=== PATIENT | male | born 1975 | race Two or more races ===

== ENCOUNTER 2016-12-03 00:19 | Emergency (ER) | payer SELFPAY ==
[~2016-12-03] VITALS: Ht 175.3 cm; Wt 86.0 kg
[2016-12-03] MEDS ORDERED: LIDOCAINE HCL/EPINEPHRINE 0.5%-EPI 1:200,000 50 ML VIAL INFIL ONE (02:00)
[2016-12-03] MEDS ORDERED: LIDOCAINE HCL 1%/EPI 1:200,000 30 ML VIAL IJ SCH (02:45)
[2016-12-03 04:29] VITALS: BP 139/93
== END 2016-12-03 04:30 | disposition home or self-care (01) ==
LOC: ER 00:19
PROC: 08QQXZZ Repair Right Lower Eyelid, External Approach (ICD-10-PCS; principal; 2016-12-03)
DX: S01.111A Laceration without foreign body of right eyelid and periocular area, initial encounter (principal); I10 Essential (primary) hypertension; W10.8XXA Fall (on) (from) other stairs and steps, initial encounter; Y93.89 Activity, other specified; Y92.89 Other specified places as the place of occurrence of the external cause
CPT/HCPCS: 12011; 70450; 99284; A4217; J3490; Z7610

== ENCOUNTER 2016-12-05 12:03 | Emergency (ER) | payer SELFPAY ==
[~2016-12-05] VITALS: Ht 175.3 cm; Wt 86.0 kg
[2016-12-05 12:07] VITALS: BP_DIAS 97
[2016-12-05 12:52] VITALS: BP_SYST 154
[2016-12-05] MEDS ORDERED: SULFACETAMIDE SODIUM 10% OPHTH DROPS 15ML RIGHTEYE ONE (13:00)
[2016-12-05] MEDS ORDERED: SULFACETAMIDE SODIUM 10% OPHTH DROPS 15ML RIGHTEYE NR (13:15)
== END 2016-12-05 14:09 | disposition home or self-care (01) ==
LOC: ER 12:48
DX: H10.31 Unspecified acute conjunctivitis, right eye (principal); I10 Essential (primary) hypertension; Z87.891 Personal history of nicotine dependence
CPT/HCPCS: 99283; Z7610

== ENCOUNTER 2016-12-14 08:26 | Emergency (ER) | payer SELFPAY ==
[~2016-12-14] VITALS: Ht 175.3 cm; Wt 116.0 kg
[2016-12-14 10:05] VITALS: BP 156/92
== END 2016-12-14 10:06 | disposition home or self-care (01) ==
LOC: ER 08:26
DX: S01.111D Laceration without foreign body of right eyelid and periocular area, subsequent encounter (principal); I10 Essential (primary) hypertension; X58.XXXD Exposure to other specified factors, subsequent encounter; Y99.8 Other external cause status; Y93.89 Activity, other specified; Y92.89 Other specified places as the place of occurrence of the external cause
CPT/HCPCS: 99281; Z7610

== ENCOUNTER 2021-07-25 13:17 | Emergency (ER) | payer SELFPAY ==
[~2021-07-25] VITALS: Ht 177.8 cm; Wt 92.0 kg
[2021-07-25 13:33] VITALS: BP 159/98
[2021-07-25] MEDS ORDERED: KETOROLAC 60MG/2ML VIAL IM STA (14:58)
[2021-07-25] MEDS ORDERED: METHYLPREDNISOLONE SOD SUCC 125 MG/2 ML VIAL IM STA (14:58)
[2021-07-25] MEDS ORDERED: NAPR-681 PO (16:02)
== END 2021-07-25 16:48 | disposition home or self-care (01) ==
LOC: ER 13:17
DX: M25.572 Pain in left ankle and joints of left foot (principal); M25.571 Pain in right ankle and joints of right foot; I10 Essential (primary) hypertension; Z98.890 Other specified postprocedural states
CPT/HCPCS: 96372; 99284; J1885; J2930

== ENCOUNTER 2021-08-22 20:19 | Emergency (ER) | payer SELFPAY ==
[~2021-08-22] VITALS: Ht 175.3 cm; Wt 91.0 kg
[~2021-08-22 20:19] MED LIST: NAPR-681 PO
[2021-08-23] MEDS ORDERED: COLCHICINE 0.6MG TABLET PO ONE (00:45)
[2021-08-23] MEDS ORDERED: IBUP-2030 MT (01:01)
[2021-08-23 02:26] VITALS: BP 140/83
== END 2021-08-23 02:27 | disposition home or self-care (01) ==
LOC: ER 20:19
DX: M10.9 Gout, unspecified (principal); I10 Essential (primary) hypertension; Z88.3 Allergy status to other anti-infective agents
CPT/HCPCS: 36415; 73562; 73610; 84550; 93971; 99285